=== PATIENT | female | born 1960 | race Caucasian/White ===

== ENCOUNTER 2018-01-30 16:01 | Emergency (ER) | payer OTHER ==
[2018-01-30] MEDS: KETOROLAC 30 MG INJ IM (16:30)
[2018-01-30 16:54] LABS: ADD UMIC YES; UR ASCORBIC ACID NEGATIVE (NEGATIVE); UR BILIRUBIN (Dip) NEGATIVE (NEGATIVE); UR BLOOD (Dip) 3+ mg/dL (NEGATIVE); UR CLARITY CLOUDY (CLEAR); UR COLOR RED (YELLOW); UR GLUCOSE (Dip) NEGATIVE (NEGATIVE); UR KETONES (Dip) NEGATIVE (NEGATIVE); UR LEUKOCYTE ESTERASE (Dip) TRACE Leu/ul (NEGATIVE); UR NITRITE (Dip) NEGATIVE (NEGATIVE); UR RBC > 182 /HPF (0-5); UR SPECIFIC GRAVITY (Dip) 1.019 (1.003-1.030); UR TOTAL PROTEIN (Dip) 2+ mg/dl (NEGATIVE); UR UROBILINOGEN (Dip) NEGATIVE (NEGATIVE); UR WBC 0 /HPF (0-5)
== END 2018-01-30 17:45 | disposition home or self-care (01) ==
LOC: E/R 16:01
DX: N20.0 Calculus of kidney (principal)
CPT/HCPCS: 81001; 96372; 99284-25

== ENCOUNTER 2018-02-22 03:27 | Inpatient (IN) | payer OTHER ==
[2018-02-22] MEDS: KETOROLAC 15 MG INJ IV (05:41)
[2018-02-22] MEDS: ONDANSETRON 4 MG INJ IV (05:41)
[2018-02-22 05:53] LABS: ADD MAN DIFF? NO
[2018-02-22] MEDS ORDERED: ACETAMINOPHEN 325 MG TAB PO ×2 (06:00→07:30)
[2018-02-22] MEDS ORDERED: ONDANSETRON 4 MG INJ IV (06:00)
[2018-02-22 06:06] LABS: WHITE BLOOD COUNT 7.6 10^3/ul (4.8-10.8)
[2018-02-22 06:06] LABS: BASOPHILS % 0.5 % (0.0-2.0); EOSINOPHILS # 0.1 10^3/ul (0.0-0.5); EOSINOPHILS % 1.7 % (0.0-7.0); HEMOGLOBIN 13.6 g/dl (12.0-16.0); LYMPHOCYTES # 1.2 10^3/ul (0.8-2.9); LYMPHOCYTES % 15.5 % (15.0-51.0); MEAN CORPUSCULAR HEMOGLOBIN 30.8 pg (29.0-33.0); MEAN CORPUSCULAR VOLUME 90.5 fl (82.0-101.0); MEAN PLATELET VOLUME 12.1 fl (7.4-10.4); MONOCYTE # 0.6 10^3/ul (0.3-0.9); MONOCYTES % 7.9 % (0.0-11.0); NEUTROPHIL # 5.6 10^3/ul (1.6-7.5); NEUTROPHILS % 74.1 % (39.0-77.0); PLATELET COUNT 185 10^3/UL (140-415); RED BLOOD COUNT 4.42 10^6/ul (4.20-5.40); RED CELL DISTRIBUTION WIDTH 11.8 % (11.5-14.5)
[2018-02-22 06:11] LABS: POSITIVE DIFF @See below
[2018-02-22 06:27] LABS: ALANINE AMINOTRANSFERASE 27 IU/L (13-69); ALBUMIN 3.8 g/dl (3.3-4.9); ALBUMIN/GLOBULIN RATIO 1.58; ALKALINE PHOSPHATASE 89 IU/L (42-121); ANION GAP 17 (8-16); ASPARTATE AMINO TRANSFERASE 16 IU/L (15-46); BILIRUBIN,INDIRECT 0.1 mg/dl (0-1.1); BILIRUBIN,TOTAL 0.1 mg/dl (0.2-1.3); BLOOD UREA NITROGEN 24 mg/dl (7-20); CALCIUM 9.4 mg/dl (8.4-10.2); CARBON DIOXIDE 24 mmol/L (21-31); CHLORIDE 109 mmol/L (97-110); GLUCOSE 116 mg/dl (70-220); LIPASE 50 U/L (23-300); POTASSIUM 3.8 mmol/L (3.5-5.1); SODIUM 146 mmol/L (135-144); TOTAL PROTEIN 6.2 g/dl (6.1-8.1)
[2018-02-22] MEDS: SOD CHLORIDE 0.9% 1,000 ML IV ×4 (06:56→17:28)
[2018-02-22] MEDS ORDERED: ZOLPIDEM 5 MG TAB PO (07:30)
[2018-02-22] MEDS ORDERED: ALBUTEROL/IPRATROPIUM (NEB) 3 ML AMP HHN (07:30)
[2018-02-22] MEDS ORDERED: IBUPROFEN 600 MG TAB PO (07:30)
[2018-02-22] MEDS ORDERED: NACL 0.9% 3 ML SYG IV (07:30)
[2018-02-22 07:42] LABS: INR 0.87; PARTIAL THROMBOPLASTIN TIME 26.4 Sec (25.0-35.0); PROTIME 11.9 Sec (11.9-14.9); PT RATIO 0.9
[2018-02-22] MEDS: morphine 2 MG INJ IV ×3 (09:08→23:30)
[2018-02-22] MEDS: TOPIRAMATE 100 MG TAB PO (11:44)
[2018-02-22] MEDS: SUMATRIPTAN 25 MG TAB PO (11:44)
[2018-02-22 12:08] LABS: ADD UMIC NO; UR ASCORBIC ACID NEGATIVE (NEGATIVE); UR BILIRUBIN (Dip) NEGATIVE (NEGATIVE); UR BLOOD (Dip) NEGATIVE (NEGATIVE); UR CLARITY CLEAR (CLEAR); UR COLOR STRAW (YELLOW); UR GLUCOSE (Dip) NEGATIVE (NEGATIVE); UR KETONES (Dip) NEGATIVE (NEGATIVE); UR LEUKOCYTE ESTERASE (Dip) NEGATIVE Leu/ul (NEGATIVE); UR NITRITE (Dip) NEGATIVE (NEGATIVE); UR TOTAL PROTEIN (Dip) NEGATIVE (NEGATIVE); UR UROBILINOGEN (Dip) NEGATIVE (NEGATIVE)
[2018-02-22] MEDS: TAMSULOSIN (SR) 0.4 MG CAP PO (20:16)
[2018-02-23] MEDS: SOD CHLORIDE 0.9% 1,000 ML IV ×2 (01:44→09:56)
[2018-02-23 05:06] LABS: ADD MAN DIFF? NO
[2018-02-23 05:12] LABS: WHITE BLOOD COUNT 5.4 10^3/ul (4.8-10.8)
[2018-02-23 05:12] LABS: BASOPHIL # 0.1 10^3/ul (0.0-0.1); BASOPHILS % 0.9 % (0.0-2.0); EOSINOPHILS # 0.2 10^3/ul (0.0-0.5); EOSINOPHILS % 3.9 % (0.0-7.0); HEMATOCRIT 36.6 % (37.0-47.0); HEMOGLOBIN 12.4 g/dl (12.0-16.0); LYMPHOCYTES # 1.6 10^3/ul (0.8-2.9); LYMPHOCYTES % 29.6 % (15.0-51.0); MEAN CORPUSCULAR HEMOGLOBIN 30.8 pg (29.0-33.0); MEAN CORPUSCULAR HGB CONC 33.9 g/dl (32.0-37.0); MEAN PLATELET VOLUME 11.9 fl (7.4-10.4); MONOCYTE # 0.5 10^3/ul (0.3-0.9); MONOCYTES % 8.9 % (0.0-11.0); NEUTROPHILS % 56.5 % (39.0-77.0); PLATELET COUNT 157 10^3/UL (140-415); RED BLOOD COUNT 4.02 10^6/ul (4.20-5.40); RED CELL DISTRIBUTION WIDTH 11.8 % (11.5-14.5)
[2018-02-23 05:31] LABS: ALANINE AMINOTRANSFERASE 20 IU/L (13-69); ALBUMIN 3.1 g/dl (3.3-4.9); ALBUMIN/GLOBULIN RATIO 1.29; ALKALINE PHOSPHATASE 87 IU/L (42-121); ANION GAP 14 (8-16); ASPARTATE AMINO TRANSFERASE 17 IU/L (15-46); BLOOD UREA NITROGEN 22 mg/dl (7-20); CALCIUM 8.8 mg/dl (8.4-10.2); CARBON DIOXIDE 22 mmol/L (21-31); CHLORIDE 114 mmol/L (97-110); CREATININE 1.25 mg/dl (0.44-1.00); GLUCOSE 122 mg/dl (70-220); MAGNESIUM 1.8 mg/dl (1.7-2.5); PHOSPHORUS 3.7 mg/dl (2.5-4.9); POTASSIUM 4.1 mmol/L (3.5-5.1); SODIUM 146 mmol/L (135-144); TOTAL PROTEIN 5.5 g/dl (6.1-8.1)
[2018-02-23] MEDS ORDERED: EPHEDrine SULFATE 50 MG/5 ML SYG (07:00)
[2018-02-23] MEDS: morphine 2 MG INJ IV (07:54)
[2018-02-23] MEDS: SUMATRIPTAN 25 MG TAB PO (08:51)
[2018-02-23] MEDS: TOPIRAMATE 100 MG TAB PO (08:51)
[2018-02-23] MEDS ORDERED: HYDROmorphONE 0.5 MG/0.5 ML SYG IV (09:30)
[2018-02-23] MEDS: ONDANSETRON 4 MG INJ IV ×2 (09:56→20:36)
[2018-02-23] MEDS ORDERED: MIDAZOLAM 1 MG/ML 2 ML INJ ×2 (18:56→20:06)
[2018-02-23] MEDS ORDERED: ROCURONIUM 50 MG INJ ×2 (18:56→19:25)
[2018-02-23] MEDS ORDERED: PROPOFOL 20 ML (18:56)
[2018-02-23] MEDS ORDERED: FENTAnyl 50 MCG/ML VIAL (18:56)
[2018-02-23] MEDS ORDERED: CEFAZOLIN 1 GM INJ (18:56)
[2018-02-23] MEDS ORDERED: KETOROLAC 30 MG INJ (19:40)
[2018-02-23] MEDS ORDERED: METOCLOPRAMIDE 10 MG INJ (19:40)
[2018-02-23] MEDS ORDERED: ONDANSETRON 4 MG INJ (19:40)
[2018-02-23] MEDS ORDERED: DEXAMETHASONE 4 MG/ML 1 ML INJ (19:40)
[2018-02-23] MEDS ORDERED: SUGAMMADEX SODIUM 200 MG/2 ML VIAL IV (19:45)
[2018-02-23] MEDS: LIDOCAINE 2% 20 ML UROJET SYRINGE (19:45)
[2018-02-23] MEDS ORDERED: HYDROmorphONE (0.2 MG/ML) 10ML SYG IV ×3 (20:00)
[2018-02-23] MEDS ORDERED: EPHEDrine SULFATE 50 MG/5 ML SYG IV (20:00)
[2018-02-23] MEDS ORDERED: OXYCODONE/ACETAMINOPHEN (5/325) TAB PO (20:00)
[2018-02-23] MEDS ORDERED: FENTAnyl 50 MCG/ML VIAL IV ×3 (20:00)
[2018-02-23] MEDS ORDERED: ALBUTEROL 0.083% (NEB) 2.5 MG/3 ML AMP HHN (20:00)
[2018-02-23] MEDS ORDERED: METOCLOPRAMIDE 10 MG INJ IV (20:00)
[2018-02-23] MEDS ORDERED: LABETALOL HCL 20MG INJ IV (20:00)
[2018-02-23] MEDS: DIPHENHYDRAMINE 50 MG INJ IV (20:22)
[2018-02-23] MEDS ORDERED: ONDANSETRON 4 MG INJ IV (20:30)
[2018-02-23] MEDS ORDERED: HYDROCODONE/APAP (5/325) TAB PO (20:30)
[2018-02-23 20:31] LABS: ADD UMIC YES; UR ASCORBIC ACID NEGATIVE (NEGATIVE); UR BILIRUBIN (Dip) NEGATIVE (NEGATIVE); UR BLOOD (Dip) 1+ mg/dL (NEGATIVE); UR CLARITY CLEAR (CLEAR); UR COLOR STRAW (YELLOW); UR GLUCOSE (Dip) NEGATIVE (NEGATIVE); UR KETONES (Dip) NEGATIVE (NEGATIVE); UR LEUKOCYTE ESTERASE (Dip) NEGATIVE Leu/ul (NEGATIVE); UR NITRITE (Dip) NEGATIVE (NEGATIVE); UR RBC 1 /HPF (0-5); UR TOTAL PROTEIN (Dip) NEGATIVE (NEGATIVE); UR UROBILINOGEN (Dip) NEGATIVE (NEGATIVE); UR WBC 1 /HPF (0-5)
[2018-02-23] MEDS: MEPERIDINE 25 MG INJ IV (20:37)
[2018-02-23] MEDS: TAMSULOSIN (SR) 0.4 MG CAP PO (21:00)
== END 2018-02-23 22:15 | disposition home or self-care (01) | DRG 670 ==
LOC: E/R 03:27 → MS1 05:59
PROC: 0TC78ZZ Extirpation of Matter from Left Ureter, Via Natural or Artificial Opening Endoscopic (ICD-10-PCS; principal; 2018-02-23 16:00)
PROC: 0T778DZ Dilation of Left Ureter with Intraluminal Device, Via Natural or Artificial Opening Endoscopic (ICD-10-PCS; 2018-02-23 16:00)
DX: N20.1 Calculus of ureter (principal); R11.2 Nausea with vomiting, unspecified; G43.909 Migraine, unspecified, not intractable, without status migrainosus
CPT/HCPCS: 36415; 71045; 74018; 74430; 80053; 81001; 81003; 83690; 83735; 84100; 85025; 85610; 85730; 86850; 86900; 86901; 87086; 93005; 96374; 96375; 99285-25

== ENCOUNTER 2018-03-07 10:56 | Emergency (ER) | payer OTHER ==
[2018-03-07] MEDS: KETOROLAC 15 MG INJ IM ×2 (12:04→12:18)
[2018-03-07] MEDS: ONDANSETRON (ODT) 4 MG TAB ODT (12:17)
== END 2018-03-07 13:27 | disposition home or self-care (01) ==
LOC: FTE 10:56
DX: R10.32 Left lower quadrant pain (principal); G89.18 Other acute postprocedural pain
CPT/HCPCS: 74018; 87086; 96372; 99284-25

== ENCOUNTER 2018-08-05 07:57 | Day surgery (SDC) | payer OTHER ==
[2018-08-05] MEDS ORDERED: PROPOFOL 60 ML (10:03)
[2018-08-05] MEDS ORDERED: LIDOCAINE 2% (SDV) 5 ML INJ (10:03)
== END 2018-08-05 11:23 | disposition home or self-care (01) ==
LOC: GIL 07:57
DX: Z12.11 Encounter for screening for malignant neoplasm of colon (principal); K57.90 Diverticulosis of intestine, part unspecified, without perforation or abscess without bleeding; K64.8 Other hemorrhoids
CPT/HCPCS: 45378

== ENCOUNTER 2018-12-16 18:26 | Emergency (ER) | payer OTHER ==
[2018-12-16] MEDS: KETOROLAC 15 MG INJ IV (19:44)
[2018-12-16] MEDS: ONDANSETRON 4 MG INJ IV (19:44)
[2018-12-16 19:50] LABS: ADD MAN DIFF? NO
[2018-12-16 19:59] LABS: BASOPHIL # 0.1 10^3/ul (0.0-0.1); BASOPHILS % 0.8 % (0.0-2.0); EOSINOPHILS # 0.2 10^3/ul (0.0-0.5); EOSINOPHILS % 2.6 % (0.0-7.0); HEMATOCRIT 46.2 % (37.0-47.0); HEMOGLOBIN 15.9 g/dl (12.0-16.0); LYMPHOCYTES # 2.1 10^3/ul (0.8-2.9); LYMPHOCYTES % 33.3 % (15.0-51.0); MEAN CORPUSCULAR HEMOGLOBIN 31.1 pg (29.0-33.0); MEAN CORPUSCULAR HGB CONC 34.4 g/dl (32.0-37.0); MEAN CORPUSCULAR VOLUME 90.4 fl (82.0-101.0); MEAN PLATELET VOLUME 12.2 fl (7.4-10.4); MONOCYTE # 0.4 10^3/ul (0.3-0.9); MONOCYTES % 5.8 % (0.0-11.0); NEUTROPHIL # 3.5 10^3/ul (1.6-7.5); PLATELET COUNT 223 10^3/UL (140-415); RED BLOOD COUNT 5.11 10^6/ul (4.20-5.40); RED CELL DISTRIBUTION WIDTH 12.1 % (11.5-14.5)
[2018-12-16 19:59] LABS: WHITE BLOOD COUNT 6.2 10^3/ul (4.8-10.8)
[2018-12-16 20:18] LABS: ADD UMIC YES; UR ASCORBIC ACID NEGATIVE (NEGATIVE); UR BILIRUBIN (Dip) NEGATIVE (NEGATIVE); UR BLOOD (Dip) 3+ mg/dL (NEGATIVE); UR CLARITY CLOUDY (CLEAR); UR COLOR YELLOW (YELLOW); UR GLUCOSE (Dip) NEGATIVE (NEGATIVE); UR KETONES (Dip) NEGATIVE (NEGATIVE); UR LEUKOCYTE ESTERASE (Dip) NEGATIVE Leu/ul (NEGATIVE); UR NITRITE (Dip) NEGATIVE (NEGATIVE); UR RBC > 182 /HPF (0-5); UR SPECIFIC GRAVITY (Dip) 1.019 (1.003-1.030); UR TOTAL PROTEIN (Dip) 1+ mg/dl (NEGATIVE); UR UROBILINOGEN (Dip) NEGATIVE (NEGATIVE); UR WBC 27 /HPF (0-5)
[2018-12-16 20:42] LABS: ALANINE AMINOTRANSFERASE 23 IU/L (13-69); ALBUMIN 4.7 g/dl (3.3-4.9); ALBUMIN/GLOBULIN RATIO 1.51; ALKALINE PHOSPHATASE 147 IU/L (42-121); ANION GAP 10 (5-13); ASPARTATE AMINO TRANSFERASE 31 IU/L (15-46); BILIRUBIN,INDIRECT 0.1 mg/dl (0-1.1); BILIRUBIN,TOTAL 0.1 mg/dl (0.2-1.3); BLOOD UREA NITROGEN 15 mg/dl (7-20); CARBON DIOXIDE 24 mmol/L (21-31); CHLORIDE 111 mmol/L (97-110); CREATININE 0.76 mg/dl (0.44-1.00); Estimated GFR > 60 mL/min (>60); GLUCOSE 111 mg/dl (70-220); LIPASE 83 U/L (23-300); POTASSIUM 3.9 mmol/L (3.5-5.1); SODIUM 145 mmol/L (135-144); TOTAL PROTEIN 7.8 g/dl (6.1-8.1)
== END 2018-12-16 23:00 | disposition home or self-care (01) ==
LOC: E/R 18:26
DX: N20.1 Calculus of ureter (principal); J45.909 Unspecified asthma, uncomplicated; Z91.040 Latex allergy status
CPT/HCPCS: 36415; 74176; 80053; 81001; 83690; 85025; 96374; 96375; 99285-25

== ENCOUNTER 2019-03-05 22:52 | Emergency (ER) | payer OTHER ==
[2019-03-05 23:31] LABS: ADD MAN DIFF? NO
[2019-03-05] MEDS: ALBUTEROL 0.5% (NEB) 2.5 MG/0.5 ML AMP INH (23:33)
[2019-03-05] MEDS: IPRATROPIUM (NEB) 0.5 MG/2.5 ML AMP INH (23:33)
[2019-03-05 23:34] LABS: BASOPHILS % 0.5 % (0.0-2.0); EOSINOPHILS # 0.3 10^3/ul (0.0-0.5); EOSINOPHILS % 4.9 % (0.0-7.0); HEMATOCRIT 42.9 % (37.0-47.0); HEMOGLOBIN 14.5 g/dl (12.0-16.0); LYMPHOCYTES # 2.7 10^3/ul (0.8-2.9); LYMPHOCYTES % 44.8 % (15.0-51.0); MEAN CORPUSCULAR HGB CONC 33.8 g/dl (32.0-37.0); MEAN CORPUSCULAR VOLUME 88.6 fl (82.0-101.0); MEAN PLATELET VOLUME 11.9 fl (7.4-10.4); MONOCYTE # 0.6 10^3/ul (0.3-0.9); MONOCYTES % 9.6 % (0.0-11.0); NEUTROPHIL # 2.4 10^3/ul (1.6-7.5); PLATELET COUNT 211 10^3/UL (140-415); RED BLOOD COUNT 4.84 10^6/ul (4.20-5.40); RED CELL DISTRIBUTION WIDTH 12.4 % (11.5-14.5)
[2019-03-05 23:34] LABS: WHITE BLOOD COUNT 6.1 10^3/ul (4.8-10.8)
[2019-03-05] MEDS: METHYLPREDNISOLONE 125 MG INJ IV (23:34)
[2019-03-05] MEDS: ACETAMINOPHEN 325 MG TAB PO (23:34)
[2019-03-05 23:53] LABS: INR 0.83; PROTIME 11.5 Sec (11.9-14.9); PT RATIO 0.9
[2019-03-05 23:54] LABS: ANION GAP 10 (5-13); BLOOD UREA NITROGEN 17 mg/dl (7-20); CALCIUM 9.9 mg/dl (8.4-10.2); CARBON DIOXIDE 21 mmol/L (21-31); CHLORIDE 113 mmol/L (97-110); CREATININE 0.79 mg/dl (0.44-1.00); Estimated GFR > 60 mL/min (>60); GLUCOSE 123 mg/dl (70-220); PARTIAL THROMBOPLASTIN TIME 25.6 Sec (23.0-35.0); POTASSIUM 3.7 mmol/L (3.5-5.1); SODIUM 144 mmol/L (135-144)
[2019-03-06 00:05] LABS: TROPONIN-I < 0.012 ng/ml (0.000-0.120)
== END 2019-03-06 02:58 | disposition home or self-care (01) ==
LOC: E/R 03-06 02:58
DX: J45.901 Unspecified asthma with (acute) exacerbation (principal); Z91.040 Latex allergy status
CPT/HCPCS: 36415; 71045; 80048; 83605; 84484; 85025; 85610; 85730; 93005; 94644; 96374; 99285-25

== ENCOUNTER 2019-04-25 21:21 | Inpatient (IN) | payer OTHER ==
[2019-04-25] MEDS: SOD CHLORIDE 0.9% 1,000 ML IV (22:36)
[2019-04-25] MEDS: morphine 4 MG/ML VIAL IV (22:36)
[2019-04-25] MEDS: ONDANSETRON 4 MG INJ IV (22:36)
[2019-04-25 22:42] LABS: ADD MAN DIFF? NO
[2019-04-25 22:47] LABS: WHITE BLOOD COUNT 5.4 10^3/ul (4.8-10.8)
[2019-04-25 22:47] LABS: BASOPHIL # 0.1 10^3/ul (0.0-0.1); BASOPHILS % 0.9 % (0.0-2.0); EOSINOPHILS # 0.2 10^3/ul (0.0-0.5); HEMATOCRIT 43.6 % (37.0-47.0); HEMOGLOBIN 14.6 g/dl (12.0-16.0); LYMPHOCYTES # 1.9 10^3/ul (0.8-2.9); LYMPHOCYTES % 35.6 % (15.0-51.0); MEAN CORPUSCULAR HGB CONC 33.5 g/dl (32.0-37.0); MEAN CORPUSCULAR VOLUME 89.7 fl (82.0-101.0); MEAN PLATELET VOLUME 11.7 fl (7.4-10.4); MONOCYTE # 0.5 10^3/ul (0.3-0.9); MONOCYTES % 9.3 % (0.0-11.0); NEUTROPHIL # 2.8 10^3/ul (1.6-7.5); PLATELET COUNT 180 10^3/UL (140-415); RED BLOOD COUNT 4.86 10^6/ul (4.20-5.40); RED CELL DISTRIBUTION WIDTH 12.3 % (11.5-14.5)
[2019-04-25 22:58] LABS: ADD UMIC YES; UR ASCORBIC ACID NEGATIVE (NEGATIVE); UR BILIRUBIN (Dip) NEGATIVE (NEGATIVE); UR BLOOD (Dip) 3+ mg/dL (NEGATIVE); UR CALCIUM OXALATE CRYSTAL FEW /HPF (NONE SEEN); UR CLARITY SLIGHTLY CLOUDY (CLEAR); UR COLOR YELLOW (YELLOW); UR GLUCOSE (Dip) NEGATIVE (NEGATIVE); UR KETONES (Dip) NEGATIVE (NEGATIVE); UR LEUKOCYTE ESTERASE (Dip) 1+ Leu/ul (NEGATIVE); UR NITRITE (Dip) NEGATIVE (NEGATIVE); UR RBC > 182 /HPF (0-5); UR SPECIFIC GRAVITY (Dip) 1.017 (1.003-1.030); UR TOTAL PROTEIN (Dip) NEGATIVE (NEGATIVE); UR UROBILINOGEN (Dip) 1+ mg/dL (NEGATIVE); UR WBC 17 /HPF (0-5)
[2019-04-25 23:05] LABS: ALANINE AMINOTRANSFERASE 28 IU/L (13-69); ALBUMIN 4.1 g/dl (3.3-4.9); ALBUMIN/GLOBULIN RATIO 1.32; ALKALINE PHOSPHATASE 115 IU/L (42-121); ANION GAP 7 (5-13); ASPARTATE AMINO TRANSFERASE 23 IU/L (15-46); BILIRUBIN,INDIRECT 0.3 mg/dl (0-1.1); BILIRUBIN,TOTAL 0.3 mg/dl (0.2-1.3); BLOOD UREA NITROGEN 21 mg/dl (7-20); CALCIUM 9.5 mg/dl (8.4-10.2); CARBON DIOXIDE 26 mmol/L (21-31); CHLORIDE 111 mmol/L (97-110); CREATININE 0.91 mg/dl (0.44-1.00); Estimated GFR > 60 mL/min (>60); GLUCOSE 111 mg/dl (70-220); LIPASE 60 U/L (23-300); POTASSIUM 3.9 mmol/L (3.5-5.1); SODIUM 144 mmol/L (135-144); TOTAL PROTEIN 7.2 g/dl (6.1-8.1)
[2019-04-26] MEDS: CEFTRIAXONE 1 GM/50 ML (PMX) 50 ML IVPB (01:47)
[2019-04-26] MEDS ORDERED: ACETAMINOPHEN 325 MG TAB PO ×2 (02:00→02:30)
[2019-04-26] MEDS ORDERED: ONDANSETRON 4 MG INJ IV (02:00)
[2019-04-26] MEDS ORDERED: DOCUSATE SODIUM 100 MG CAP PO (02:30)
[2019-04-26] MEDS ORDERED: NACL 0.9% 3 ML SYG IV (02:30)
[2019-04-26] MEDS ORDERED: BISACODYL (EC) 5 MG TAB PO (02:30)
[2019-04-26] MEDS: SOD CHLORIDE 0.9% 1,000 ML IV ×3 (03:22→22:28)
[2019-04-26] MEDS: TAMSULOSIN (SR) 0.4 MG CAP PO ×2 (03:24→21:53)
[2019-04-26] MEDS: ONDANSETRON 4 MG INJ IV ×2 (03:24→08:56)
[2019-04-26] MEDS: KETOROLAC 15 MG INJ IV ×4 (03:24→21:54)
[2019-04-26 05:13] LABS: ADD MAN DIFF? NO
[2019-04-26 05:21] LABS: BASOPHIL # 0.1 10^3/ul (0.0-0.1); BASOPHILS % 1.1 % (0.0-2.0); EOSINOPHILS # 0.2 10^3/ul (0.0-0.5); EOSINOPHILS % 5.2 % (0.0-7.0); HEMATOCRIT 41.6 % (37.0-47.0); HEMOGLOBIN 13.8 g/dl (12.0-16.0); LYMPHOCYTES # 1.9 10^3/ul (0.8-2.9); LYMPHOCYTES % 42.7 % (15.0-51.0); MEAN CORPUSCULAR HEMOGLOBIN 30.1 pg (29.0-33.0); MEAN CORPUSCULAR HGB CONC 33.2 g/dl (32.0-37.0); MEAN CORPUSCULAR VOLUME 90.6 fl (82.0-101.0); MEAN PLATELET VOLUME 12.2 fl (7.4-10.4); MONOCYTE # 0.5 10^3/ul (0.3-0.9); MONOCYTES % 10.5 % (0.0-11.0); NEUTROPHIL # 1.8 10^3/ul (1.6-7.5); NEUTROPHILS % 40.3 % (39.0-77.0); PLATELET COUNT 177 10^3/UL (140-415); RED BLOOD COUNT 4.59 10^6/ul (4.20-5.40); RED CELL DISTRIBUTION WIDTH 12.4 % (11.5-14.5)
[2019-04-26 05:21] LABS: WHITE BLOOD COUNT 4.4 10^3/ul (4.8-10.8)
[2019-04-26 05:40] LABS: INR 0.88; PT RATIO 0.9
[2019-04-26 05:41] LABS: PARTIAL THROMBOPLASTIN TIME 27.3 Sec (23.0-35.0)
[2019-04-26 06:07] LABS: ALANINE AMINOTRANSFERASE 21 IU/L (13-69); ALBUMIN 3.6 g/dl (3.3-4.9); ALKALINE PHOSPHATASE 96 IU/L (42-121); ANION GAP 6 (5-13); ASPARTATE AMINO TRANSFERASE 21 IU/L (15-46); BILIRUBIN,INDIRECT 0.3 mg/dl (0-1.1); BILIRUBIN,TOTAL 0.3 mg/dl (0.2-1.3); BLOOD UREA NITROGEN 19 mg/dl (7-20); CARBON DIOXIDE 23 mmol/L (21-31); CHLORIDE 115 mmol/L (97-110); CHOLESTEROL 232 mg/dl (100-200); CREATININE 0.82 mg/dl (0.44-1.00); Estimated GFR > 60 mL/min (>60); GLUCOSE 111 mg/dl (70-220); HDL CHOLESTEROL 46 mg/dl (37-92); LDL CHOLESTEROL,CALCULATED 166 mg/dl; MAGNESIUM 2.3 mg/dl (1.7-2.5); POTASSIUM 3.9 mmol/L (3.5-5.1); SODIUM 144 mmol/L (135-144); TRIGLYCERIDES 98 mg/dl (0-149)
[2019-04-26 06:50] LABS: HEMOGLOBIN A1C 5.4 % (0-5.9)
[2019-04-26] MEDS: HYDROmorphONE 0.5 MG/0.5 ML SYG IV ×2 (11:45→16:35)
[2019-04-26] MEDS: SUMATRIPTAN 6 MG/0.5 ML INJ SC (13:17)
[2019-04-27] MEDS: HYDROmorphONE 0.5 MG/0.5 ML SYG IV (00:45)
[2019-04-27] MEDS: SOD CHLORIDE 0.9% 1,000 ML IV ×2 (00:45→12:19)
[2019-04-27] MEDS: HYDROmorphONE 1 MG/ML SYG IV ×4 (02:43→23:25)
[2019-04-27] MEDS ORDERED: HYDROmorphONE 1 MG/ML SYG IV (04:00)
[2019-04-27 06:11] LABS: ADD MAN DIFF? NO
[2019-04-27 06:23] LABS: BASOPHIL # 0.1 10^3/ul (0.0-0.1); BASOPHILS % 0.8 % (0.0-2.0); EOSINOPHILS # 0.2 10^3/ul (0.0-0.5); EOSINOPHILS % 2.9 % (0.0-7.0); HEMATOCRIT 44.3 % (37.0-47.0); HEMOGLOBIN 14.3 g/dl (12.0-16.0); LYMPHOCYTES # 1.6 10^3/ul (0.8-2.9); LYMPHOCYTES % 26.5 % (15.0-51.0); MEAN CORPUSCULAR HGB CONC 32.3 g/dl (32.0-37.0); MEAN CORPUSCULAR VOLUME 93.1 fl (82.0-101.0); MEAN PLATELET VOLUME 12.3 fl (7.4-10.4); MONOCYTE # 0.5 10^3/ul (0.3-0.9); MONOCYTES % 8.5 % (0.0-11.0); NEUTROPHIL # 3.8 10^3/ul (1.6-7.5); NEUTROPHILS % 61.1 % (39.0-77.0); PLATELET COUNT 169 10^3/UL (140-415); RED BLOOD COUNT 4.76 10^6/ul (4.20-5.40); RED CELL DISTRIBUTION WIDTH 12.3 % (11.5-14.5)
[2019-04-27 06:23] LABS: WHITE BLOOD COUNT 6.2 10^3/ul (4.8-10.8)
[2019-04-27 07:12] LABS: ALANINE AMINOTRANSFERASE 28 IU/L (13-69); ALBUMIN 3.6 g/dl (3.3-4.9); ALBUMIN/GLOBULIN RATIO 1.44; ALKALINE PHOSPHATASE 79 IU/L (42-121); ANION GAP 7 (5-13); ASPARTATE AMINO TRANSFERASE 25 IU/L (15-46); BILIRUBIN,INDIRECT 0.4 mg/dl (0-1.1); BILIRUBIN,TOTAL 0.4 mg/dl (0.2-1.3); BLOOD UREA NITROGEN 20 mg/dl (7-20); CARBON DIOXIDE 21 mmol/L (21-31); CHLORIDE 116 mmol/L (97-110); CREATININE 1.09 mg/dl (0.44-1.00); Estimated GFR 52 mL/min (>60); GLUCOSE 109 mg/dl (70-220); POTASSIUM 4.2 mmol/L (3.5-5.1); SODIUM 144 mmol/L (135-144); TOTAL PROTEIN 6.1 g/dl (6.1-8.1)
[2019-04-27] MEDS: ONDANSETRON 4 MG INJ IV (10:55)
[2019-04-27] MEDS: DIPHENHYDRAMINE 50 MG INJ IV (12:49)
[2019-04-27] MEDS: TAMSULOSIN (SR) 0.4 MG CAP PO (20:37)
[2019-04-28] MEDS: SOD CHLORIDE 0.9% 1,000 ML IV ×2 (01:50→14:51)
[2019-04-28] MEDS: DIPHENHYDRAMINE 50 MG INJ IV (01:57)
[2019-04-28 05:38] LABS: ANION GAP 9 (5-13); BLOOD UREA NITROGEN 19 mg/dl (7-20); CALCIUM 8.5 mg/dl (8.4-10.2); CARBON DIOXIDE 22 mmol/L (21-31); CHLORIDE 114 mmol/L (97-110); CREATININE 0.94 mg/dl (0.44-1.00); Estimated GFR > 60 mL/min (>60); GLUCOSE 103 mg/dl (70-220); POTASSIUM 3.9 mmol/L (3.5-5.1); SODIUM 145 mmol/L (135-144)
[2019-04-28] MEDS: HYDROmorphONE 1 MG/ML SYG IV (13:40)
[2019-04-28] MEDS: SOD CHLORIDE 0.45% 1,000 ML IV (16:51)
[2019-04-28] MEDS ORDERED: IOHEXOL 300MG/ML 30 ML BTL (19:23)
[2019-04-28] MEDS ORDERED: PROPOFOL 100 ML (19:55)
[2019-04-28] MEDS ORDERED: CEFAZOLIN 1 GM INJ (19:55)
[2019-04-28] MEDS ORDERED: MIDAZOLAM 1 MG/ML 2 ML INJ (19:56)
[2019-04-28] MEDS ORDERED: FENTAnyl 50 MCG/ML VIAL (19:56)
[2019-04-28] MEDS ORDERED: ONDANSETRON 4 MG INJ (19:57)
[2019-04-28] MEDS ORDERED: METOCLOPRAMIDE 10 MG INJ (19:57)
[2019-04-28] MEDS ORDERED: LIDOCAINE 2% 20 ML UROJET SYRINGE (20:19)
[2019-04-28] MEDS ORDERED: hydrALAzine 20 MG INJ IV (20:30)
[2019-04-28] MEDS ORDERED: IPRATROPIUM (NEB) 0.5 MG/2.5 ML AMP HHN (20:30)
[2019-04-28] MEDS ORDERED: OXYCODONE/ACETAMINOPHEN (5/325) TAB PO ×2 (20:30)
[2019-04-28] MEDS ORDERED: ONDANSETRON 4 MG INJ IV (20:30)
[2019-04-28] MEDS ORDERED: LABETALOL HCL 20MG INJ IV (20:30)
[2019-04-28] MEDS ORDERED: ALBUTEROL 0.083% (NEB) 2.5 MG/3 ML AMP HHN (20:30)
[2019-04-28] MEDS ORDERED: DIPHENHYDRAMINE 50 MG INJ IV (20:30)
[2019-04-28] MEDS ORDERED: HYDROmorphONE 1 MG/5 ML IV SYRINGE IV ×2 (20:30)
[2019-04-28] MEDS: MEPERIDINE 25 MG INJ IV (21:05)
[2019-04-28] MEDS: HYDROmorphONE 1 MG/5 ML IV SYRINGE IV (21:32)
[2019-04-29] MEDS: SOD CHLORIDE 0.45% 1,000 ML IV (00:27)
[2019-04-29] MEDS: HYDROmorphONE 1 MG/ML SYG IV (00:30)
[2019-04-29] MEDS: SUMATRIPTAN 6 MG/0.5 ML INJ SC (02:34)
[2019-04-29 07:02] LABS: ANION GAP 7 (5-13); BLOOD UREA NITROGEN 14 mg/dl (7-20); CALCIUM 8.8 mg/dl (8.4-10.2); CARBON DIOXIDE 26 mmol/L (21-31); CHLORIDE 110 mmol/L (97-110); CREATININE 0.77 mg/dl (0.44-1.00); Estimated GFR > 60 mL/min (>60); GLUCOSE 97 mg/dl (70-220); POTASSIUM 3.5 mmol/L (3.5-5.1); SODIUM 143 mmol/L (135-144)
== END 2019-04-29 11:06 | disposition home or self-care (01) | DRG 660 ==
LOC: E/R 21:21 → MS1 04-26 01:32
PROC: 0T768DZ Dilation of Right Ureter with Intraluminal Device, Via Natural or Artificial Opening Endoscopic (ICD-10-PCS; principal; 2019-04-28 19:56)
PROC: 0TC68ZZ Extirpation of Matter from Right Ureter, Via Natural or Artificial Opening Endoscopic (ICD-10-PCS; 2019-04-28 19:56)
DX: N13.6 Pyonephrosis (principal); N20.2 Calculus of kidney with calculus of ureter; E78.5 Hyperlipidemia, unspecified; J45.909 Unspecified asthma, uncomplicated; R51 Headache
CPT/HCPCS: 36415; 71045; 74018; 74176; 74430; 80048; 80053; 80061; 81001; 82306; 83036; 83690; 83735; 84443; 85025; 85610; 85730; 87086; 88300; 93005; 96374; 96375; 99285-25